=== PATIENT | female | born 1960 | race Caucasian/White ===

== ENCOUNTER 2017-08-26 21:58 | Emergency (ER) | payer OTHER ==
[~2017-08-26] VITALS: Ht 160 cm; Wt 81.0 kg
[2017-08-26 22:02] VITALS: Ht 160 cm; Wt 81.0 kg
[2017-08-26 23:55] VITALS: BP 147/87
== END 2017-08-26 23:55 | disposition home or self-care (01) ==
LOC: ED 21:58
DX: L30.4 Erythema intertrigo (principal); E11.65 Type 2 diabetes mellitus with hyperglycemia; I10 Essential (primary) hypertension; E78.00 Pure hypercholesterolemia, unspecified; Z90.710 Acquired absence of both cervix and uterus; Z90.12 Acquired absence of left breast and nipple
CPT/HCPCS: 82962